=== PATIENT | female | born 1985 | race Two or more races ===

== ENCOUNTER 2017-02-02 01:50 | Inpatient (IN) | payer OTHER ==
[~2017-02-02] VITALS: Ht 162.6 cm; Wt 77.1 kg
== END 2017-02-04 13:03 | DRG 775 ==
LOC: OBS/DEL 01:50 → OB/GYN 05:16 → LDR 05:16 → OB/GYN 09:00
PROC: 10E0XZZ Delivery of Products of Conception, External Approach (ICD-10-PCS; principal; 2017-02-02)
PROC: 0W8NXZZ Division of Female Perineum, External Approach (ICD-10-PCS; 2017-02-02)
PROC: 4A1HXCZ Monitoring of Products of Conception, Cardiac Rate, External Approach (ICD-10-PCS; 2017-02-02)
PROC: 4A033R1 Measurement of Arterial Saturation, Peripheral, Percutaneous Approach (ICD-10-PCS; 2017-02-02)
DX: O42.02 Full-term premature rupture of membranes, onset of labor within 24 hours of rupture (principal); Z37.0 Single live birth; Z3A.38 38 weeks gestation of pregnancy; O99.820 Streptococcus B carrier state complicating pregnancy